=== PATIENT | female | born 1995 | race Caucasian/White ===

== ENCOUNTER 2018-01-11 20:28 | Observation (INO) | payer MEDICAID ==
[~2018-01-11] VITALS: Ht 172.7 cm; Wt 158.8 kg
[2018-01-11] MEDS ORDERED: PREN-176 MT (21:49)
== END 2018-01-11 22:25 | disposition home or self-care (01) ==
LOC: L&D 20:28
PROVIDERS: ADMIT Obstetrics & Gynecology; ATTEND Obstetrics & Gynecology
DX: O36.8130 Decreased fetal movements, third trimester, not applicable or unspecified (principal); Z3A.30 30 weeks gestation of pregnancy
CPT/HCPCS: G0378 ×2; 99281

== ENCOUNTER 2018-01-20 11:21 | Observation (INO) | payer MEDICAID ==
[~2018-01-20] VITALS: Ht 172.7 cm; Wt 161.5 kg
[~2018-01-20 11:21] MED LIST: PREN-176 MT
[2018-01-20] MEDS ORDERED: ACETAMINOPHEN 500MG TABLET PO SCH (12:15)
== END 2018-01-20 13:25 | disposition home or self-care (01) ==
LOC: L&D 11:21
PROVIDERS: ADMIT Obstetrics & Gynecology; ATTEND Obstetrics & Gynecology
DX: O36.8130 Decreased fetal movements, third trimester, not applicable or unspecified (principal); O26.893 Other specified pregnancy related conditions, third trimester; R10.9 Unspecified abdominal pain; Z3A.31 31 weeks gestation of pregnancy
CPT/HCPCS: 76815; 76818; 99281; G0378

== ENCOUNTER 2018-02-11 18:12 | Observation (INO) | payer MEDICAID | END 2018-02-11 20:00 | disposition home or self-care (01) | LOC: L&D 18:12 | PROVIDERS: ADMIT Obstetrics & Gynecology; ATTEND Obstetrics & Gynecology | DX: O40.3XX0 Polyhydramnios, third trimester, not applicable or unspecified (principal); O32.1XX0 Maternal care for breech presentation, not applicable or unspecified; Z3A.34 34 weeks gestation of pregnancy | CPT/HCPCS: 99281; G0378 ==